=== PATIENT | male | born 2000 | race Caucasian/White ===

== ENCOUNTER 2019-05-22 11:30 | Emergency (ER) | payer SELFPAY ==
[~2019-05-22] VITALS: Ht 165.1 cm; Wt 59.0 kg
--- NOTE | 2019-05-22 12:26 | ED EENT ---
History of Present Illness General Chief Complaint: Eye Problems Stated Complaint: RT EYE FOREIGN OBJECT Nursing Triage Note: Was mowing yard approx 40 minutes ago and felt like there was a foreign body in R eye. Eye is reddened but no visible foreign material in eye. States it does feel better than when it started. Flushed eye out at home with eye drops. History of Present Illness Date Seen by Provider: May 22, 2019 Time Seen by Provider: 12:15 Initial Comments The patient is a very pleasant 18-year-old male who presents for evaluation of possible foreign body in the right eye. He states that he was mowing the yard approximately 45 minutes prior to arrival when he felt like something went into his eye. He flushed his eye out and came to the emergency department. When he arrived he states that he felt like the foreign body was gone and that he was no longer having any pain or discomfort. He states that he feels silly for coming. He reports normal vision and has no complaints currently. Timing/Duration: abrupt Severity: mild Location: eye (R) Prearrival Treatment: flushing eyes Allergies and Home Medications Allergies Coded Allergies: Penicillins (Verified Adverse Reaction, Unknown, vomiting, 05/22/19) Patient Home Medication List Home Medication List Reviewed: Yes Review of Systems Review of Systems Constitutional: no symptoms reported Eyes: Inflammation Ears: No Symptoms Reported Nose: no symptoms reported Mouth: no symptoms reported Throat: no symptoms reported Respiratory: no symptoms reported Cardiovascular: no symptoms reported Gastrointestinal: no symptoms reported Musculoskeletal: no symptoms reported Skin: no symptoms reported Neurological: No Symptoms Reported Hematologic/Lymphatic: No Symptoms Reported Immunological/Allergic: no symptoms reported All Other Systems Reviewed Negative Unless Noted: Yes Past Mmdwfnv-Hykptv-Gkvafl Hx Past Med/Social Hx: Reviewed Nursing Past Med/Soc Hx Patient Social History Recent Foreign Travel: No Contact w/Someone Who Travel: No Recent Infectious Disease Expo: No Visual Acuity : Eye Location: Right Physical Exam Vital Signs Vital Signs - First Documented 05/22/19 12:04 Temp 98.0 Pulse 78 Resp 16 B/P (MAP) 120/73 Pulse Ox 99 Height, Weight, BMI Height: 5'5.00" Weight: 130lbs. oz. 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 Very mild corneal inflammation is noted. Explained to the patient that I would recommend topical anesthetic drops and stained in the eye however the patient declined stating that he feels c ompletely back to normal and just wants to go home. I explained the patient I recommend antibiotic eye medication as he could have a corneal abrasion and he agrees. Patient advised to follow-up with his PCP in the next 2-3 days and to return to the emergency Department immediately for new or worsening symptoms. The patient and his mother expressed verbal understanding and agreement with the plan and he is stable for discharge. Departure Impression Primary Impression: Corneal irritation of right eye Disposition: 01 HOME, SELF-CARE Condition: Stable Departure-Patient Inst. Referrals: [facility] [place] Primary Care Physician CODIE AZAR APRN (Family) Primary Care Physician Patient Instructions: Corneal Abrasion (DC), How to Use Eye Ointment Add. Discharge Instructions: Follow-up with her doctor in the next 2-3 days. Take the prescribed medicine as directed. Return to the ER for new or worsening symptoms. Wear eye protection when mowing in the future. Scripts Erythromycin Base (Erythromycin Opthalmic Ointment) 1 Gm Oint...g. 0 OP QID for 3 Days, #1 TUBE 1/2 inch Prov: SEBLE RANGEL DO 05/22/19 SEBLE RANGEL DO May 22, 2019 12:26
[2019-05-22] MEDS ORDERED: ERYT1OIN6 OP (12:28)
== END 2019-05-22 12:40 | disposition home or self-care (01) ==
LOC: ER FS 11:32
DX: H18.891 Other specified disorders of cornea, right eye (principal); Z88.0 Allergy status to penicillin
CPT/HCPCS: 99282